=== PATIENT | male | born 1980 | race Asian ===

== ENCOUNTER 2018-07-01 11:11 | Emergency (ER) | payer BC, OTHER ==
[~2018-07-01] VITALS: Ht 172.7 cm; Wt 74.8 kg
--- NOTE | 2018-07-01 12:19 | ED EENT ---
History of Present Illness General Chief Complaint: Ear Problems Stated Complaint: RT EAR IS RINGING Nursing Triage Note: Pt arrived by private vehicle wiht chief complaint of right ear ringing. Pt is here from [place] visiting his mother/[id number]. Pt stated it started this morning when he felt ear was plugged/pressure and tried to clean with q-tip. Pt stated his ear is ringing. He stated he got some ear wax out, but feels that there are still some in there. Source: patient Exam Limitations: no limitations History of Present Illness Date Seen by Provider: July 01, 2018 Time Seen by Provider: 12:05 Initial Comments This is a 38 y/o m who presents to the ED with c/o Right ear cerumen impaction. Reports that he was attempting to clean his ear out with a q-tip when he had acute onset of pressure sensation to R ear. +decreased hearing to R ear. Reports similar episodes related to Cerumen impaction. no fever, no pain. Allergies and Home Medications Patient Home Medication List Home Medication List Reviewed: Yes Review of Systems Review of Systems Constitutional: No chills, No fever Eyes: No Symptoms Reported Ears: Denies Pain, Denies Tinnitus, Denies Bloody Discharge, Denies Clear Discharge, Denies Purulent Discharge Nose: no symptoms reported Mouth: no symptoms reported Throat: no symptoms reported Respiratory: no symptoms reported Neurological: No Symptoms Reported All Other Systems Reviewed Negative Unless Noted: Yes Past [id number] Hx Patient Social History Alcohol Use: Denies Use Recreational Drug Use: No Smoking Status: Never a Smoker 2nd Hand Smoke Exposure: No Recent Foreign Travel: No Contact w/Someone Who Travel: No Recent Infectious Disease Expo: No Recent Hopitalizations: No Physical Abuse: No Sexual Abuse: No Mistreated: No Fear: No Seasonal Allergies Seasonal Allergies: No Past Medical History Surgeries: No Respiratory: No Cardiac: No Neurological: No Genitourinary: No Gastrointestinal: No Musculoskeletal: No Endocrine: No HEENT: No Cancer: No Psychosocial: No Integumentary: No Blood Disorders: No Physical Exam Vital Signs Vital Signs - First Documented 07/01/18 11:30 Temp 97.8 Pulse 71 Resp 18 B/P (MAP) 133/64 (87) Pulse Ox 100 O2 Delivery Room Air Height, Weight, BMI Height: 5'8.00" Weight: 165lbs. 0oz. 74.627970br; BMI Method:Stated General Appearance: WD/WN, no apparent distress Eyes: bilateral eye PERRL, bilateral eye EOMI Ears: right ear auricle normal, right ear canal normal, right ear other (R cerumen impaction) Neck: full range of motion Cardiovascular: no edema Respiratory: no respiratory distress Neurologic/Psychiatric: no motor/sensory deficits, alert, normal mood/affect, oriented x 3 Skin: normal color, warm/dry Procedures/Interventions Ear : Ear Location: Right Foreign Body Removal: Impacted Cerumen Use of: Ear Curette Inserted: Ear Wick Inserted Progress/Conclusion Tolerated well. Resolution of symptoms. Mild abrasions to ear canal. TM visualized and normal Progress/Results/Core Measures Results/Orders Vital Signs/I&O 07/01/18 11:30 Temp 97.8 Pulse 71 Resp 18 B/P (MAP) 133/64 (87) Pulse Ox 100 O2 Delivery Room Air Blood Pressure Mean: 87 Progress Progress Note : Progress Note 1218 Visualized removal of cerumen with curette with resolution of symptoms. Advised avoiding qtips in ear. TM intact and normal appearing. ER return precautions given. Pt verbalized understanding. All questions answered. Departure Impression Primary Impression: Impacted cerumen Disposition: 01 HOME, SELF-CARE Condition: Improved Departure-Patient Inst. Decision time for Depature: 12:18 Patient Instructions: Ear Wax Impaction (DC) Add. Discharge Instructions: Please do not put anything objects in your ears. You an place one drop of over the counter mineral oil to help keep the wax soft. All discharge instructions r eviewed with patient and/or family. Voiced understanding. JOHN HARRIS DO July 01, 2018 12:19
[2018-07-01 12:25] VITALS: BP 116/64
== END 2018-07-01 12:25 | disposition home or self-care (01) ==
LOC: ER FS 11:14
DX: H61.21 Impacted cerumen, right ear (principal)
CPT/HCPCS: 99282